=== PATIENT | male | born 1965 | race Caucasian/White ===

== ENCOUNTER 2022-08-09 11:23 | Emergency (ER) | payer OTHER ==
[2022-08-09 12:19] VITALS: BP 112/83; PULSE 58; RESP 16; TEMP 98.3; BMI 26.4
== END 2022-08-09 13:39 | disposition home or self-care (01) ==
LOC: FER 11:23
DX: S42.111A Displaced fracture of body of scapula, right shoulder, initial encounter for closed fracture (principal); V18.0XXA Pedal cycle driver injured in noncollision transport accident in nontraffic accident, initial encounter
CPT/HCPCS: 71101-TC-RT-FY; 73010-TC-FY; 73030-TC-RT-FY; 73070-TC-RT-FY; 99284-25